=== PATIENT | female | born 1980 | race African-American/Black ===

== ENCOUNTER 2017-07-08 10:25 | Emergency (ER) | payer OTHER ==
[2017-07-08 10:32] VITALS: BP 141/86
--- NOTE | 2017-07-08 10:48 | ER Document Report ---
HPI - HPI Pain Level: 5 Notes: Patient is a 36-year-old female with no significant past medical history presents to the ED complaining of left arm pain status post fall yesterday. Patient states that she was getting out of the shower when her foot slipped and she landed on her left humerus. Patient states that she has soreness but no sharp pain. Patient states she is still able to move at the elbow and shoulder , but does have discomfort near her lateral arm. She has not noticed any bulging or bruising. She denies any smoking or IV drug use. Denies any recent illness. Denies any headache, fever, head injury, LOC, neck pain, changes in vision/speech/mentation/hearing, URI, sore throat, chest pain, palpitations, syncope, cough, shortness of breath, wheeze, dyspnea, abdominal pain, nausea/ vomiting/diarrhea, urinary retention, dysuria, hematuria, loss of control of bowel or bladder, numbness/tingling, saddle anesthesia, muscle paralysis, or rash. - ROS Systems Reviewed and Negative: Yes All other systems reviewed and negative - REPRODUCTIVE LMP: 06/10/17 Past Medical History - Social History Smoking Status: Never Smoker Family History: Reviewed & Not Pertinent Vertical Provider Document - CONSTITUTIONAL Agree With Documented VS: Yes Notes: PHYSICAL EXAMINATION: GENERAL: Well-appearing, well-nourished and in no acute distress. A&Ox4. Answers questions appropriately. HEAD: Atraumatic, normocephalic. EYES: Pupils equal round and reactive to light, extraocular movements intact, sclera anicteric, conjunctiva are normal. ENT: EAC clear b/l. TM's intact b/l without erythema, fluid, or perforation. Nares patent and without discharge. oropharynx clear without exudates. No tonsilar hypertrophy or erythema. Moist mucous membranes. No sinus tenderness. NECK: Normal range of motion, supple without lymphadenopathy LUNGS: Breath sounds clear to auscultation bilaterally and equal. No wheezes rales or rhonchi. HEART: Regular rate and rhythm without murmurs, rubs, gallops. Musculoskeletal: Left shoulder/elbow: FROM to passive/active. Strength 5+/5. N/ V intact distal. Lt Humerus: No deformity, abrasion, laceration, ecchymosis, step-offs, or erythema/warmth. + tenderness to the lateral humerus. Extremities: No cyanosis, clubbing, or edema b/l. Peripheral pulses 2+. Capillary refill less than 3 seconds. NEUROLOGICAL: MMSE intact. GCS 15. NIH 0. Cranial nerves grossly intact. Normal speech, normal gait. Normal sensory, motor exams PSYCH: Normal mood, normal affect. SKIN: Warm, Dry, normal turgor, no rashes or lesions noted. - INFECTION CONTROL TRAVEL OUTSIDE OF THE [place] IN LAST 30 DAYS: No - RESPIRATORY O2 Sat by Pulse Oximetry: 98 Course - Re-evaluation Re-evalutation: 07/08/17 11:35 Patient is an afebrile, well-hydrated, 36-year-old female who presents to the ED with a contusion to her left arm. Vitals are stable. PE is otherwise unremarkable for any neurovascular compromise, obvious tendon/ligament rupture, obvious fracture/dislocation, septic joint. X-ray was unremarkable for any acute pathology. Recommend conservative measures for symptoms. Recheck with your PCM in 3-5 days. Consider consult with orthopedics and physical therapy if needed. Return to the ED with any worsening/concerning symptoms otherwise as reviewed discharge. Patient is in agreement. - Vital Signs Vital signs: Temp Pulse Resp BP Pulse Ox 99.4 F 105 H 16 141/86 H 98 07/08/17 10:30 07/08/17 10:30 07/08/17 10:30 07/08/17 10:30 07/08/17 10:30 Discharge - Discharge Clinical Impression: Contusion of left arm Qualifiers: Encounter type: initial encounter Qualified Code(s): S40.022A - Contusion of left upper arm, initial encounter Condition: Stable Disposition: HOME, SELF-CARE Additional Instructions: Rest, Ice, Compression, Elevation Tylenol/ibuprofen as needed Light stretches daily Strength exercises as able Moist heat and massage may help F/u with your PCP in 3-5 days for a recheck Consider consult(s) with Orthopedics/physical therapy for ongoing/worsening symptoms Return to the ED with any worsening symptoms and/or development of fever, headache, chest pain, palpitations, syncope, shortness of breath, trouble breathing, abdominal pain, n/v/d, muscle weakness/paralysis, numbness/tingling, swelling, redness, or other worsening symptoms that are concerning to you. Forms: Elevated Blood Pressure Referrals: [facility] ([facility]) [Provider Group] - Follow up as needed
--- NOTE | 2017-07-08 11:34 | RADIOLOGY REPORT (SQ) ---
EXAM DESCRIPTION: HUMERUS LEFT COMPLETED DATE/TIME: 07/08/2017 11:24 am REASON FOR STUDY: left arm pain s/p injury COMPARISON: None. NUMBER OF VIEWS: Two views. TECHNIQUE: Two radiographic images were acquired of the left humerus to include elbow and shoulder i n at least one projection. LIMITATIONS: None. FINDINGS: MINERALIZATION: Normal. BONES: No acute fracture or dislocation. No worrisome bone lesions. SOFT TISSUES: No obvious swelling or foreign body. OTHER: No other significant finding. IMPRESSION: NEGATIVE STUDY OF THE LEFT HUMERUS. NO RADIOGRAPHIC EVIDENCE OF ACUTE INJURY. TECHNICAL DOCUMENTATION: JOB ID: [id number] [employer]- All Rights Reserved
== END 2017-07-08 11:47 | disposition home or self-care (01) ==
LOC: ER 10:25
DX: S40.022A Contusion of left upper arm, initial encounter (principal); W19.XXXA Unspecified fall, initial encounter
CPT/HCPCS: 99283

== ENCOUNTER → 2018-07-13 | Outpatient (CLI) | payer OTHER ==
--- NOTE | 2018-07-13 10:42 | RADIOLOGY REPORT (SQ) ---
EXAM DESCRIPTION: U/S ABDOMEN COMPLETE W/DOPPLER COMPLETED DATE/TIME: 07/13/2018 10:32 am REASON FOR STUDY: EPIGASTRIC PAIN (R10.13) R10.13 EPIGASTRIC PAIN COMPARISON: None. TECHNIQUE: Dynamic and static grayscale images acquired of the abdomen and recorded on PACS. Additio nal selected color Doppler and spectral images recorded. Note: Study does not meet criteria for complete doppler/duplex scan LIMITATIONS: None. FINDINGS: PANCREAS: No masses. Visualized pancreatic duct normal caliber. LIVER: No masses. Echotexture normal. LIVER VASCULATURE: Normal directional flow of the main portal vein and hepatic veins. GALLBLADDER: Gallstone(s). No pericholecystic fluid. No wall thickening. ULTRASOUND-DETECTED MORELOS'S SIGN: Negative. INTRAHEPATIC DUCTS AND COMMON DUCT: CBD and intrahepatic ducts normal caliber. No filling defects. INFERIOR VENA CAVA: Normal flow. AORTA: No aneurysm. RIGHT KIDNEY: Normal size. Normal echogenicity. No solid or suspicious masses. No hydronephros is. No calcifications. LEFT KIDNEY: Normal size. Normal echogenicity. No solid or suspicious masses. No hydronephrosi s. No calcifications. SPLEEN: Normal size. No solid masses. PERITONEAL AND PLEURAL SPACES: No ascites or effusions. OTHER: No other significant finding. IMPRESSION: GALLSTONES. NO OTHER SIGNIFICANT FINDINGS. TECHNICAL DOCUMENTATION: JOB ID: [id number] [employer]- All Rights Reserved Reading location - IP/workstation name: [email or web address]
== END ==
LOC: RAD 09:07
PROVIDERS: ATTEND Family Medicine
DX: K80.80 Other cholelithiasis without obstruction (principal); R10.13 Epigastric pain
CPT/HCPCS: 76700; 93976

== ENCOUNTER 2018-11-17 14:02 | Emergency (ER) | payer OTHER ==
[2018-11-17 17:25] LABS: APPEARANCE,URINE SLIGHTLY-CLOUDY; BILIRUBIN,URINE NEGATIVE (NEGATIVE); COLOR,URINE YELLOW; GLUCOSE, URINE NEGATIVE (NEGATIVE); KETONES,URINE NEGATIVE (NEGATIVE); LEUKOCYTE ESTERASE,URINE NEGATIVE (NEGATIVE); NITRITE,URINE NEGATIVE (NEGATIVE); PROTEIN,URINE NEGATIVE (NEGATIVE); URINE SPECIFIC GRAVITY 1.025
[2018-11-17 17:50] LABS: RBCS (WET MOUNT) NO RBCS SEEN; T.VAGINALIS (WET MOUNT) NO TRICHOMONAS SEEN; WBCS (WET MOUNT) RARE WBCS SEEN; YEAST (WET MOUNT) NO YEAST SEEN
[2018-11-17] MEDS ORDERED: FLUCONAZOLE 100 MG TABLET PO ONE (18:27)
--- NOTE | 2018-11-17 18:34 | ER Document Report ---
HPI - HPI Patient complains to provider of: Vaginal discharge Time Seen by Provider: 11/17/18 16:23 Pain Level: 3 Context: Patient is otherwise healthy 38-year-old female no history of diabetes presents to the emergency department for generalized vaginal discharge for the last 2 days. She also had generalized chills. She did not take her temperature so she is unsure if she is febrile. Patient is denying any abdominal pain or dysuria. States the vaginal discharge is malodorous and white and itching. Patient denies using any [id number] treatments for this vaginal discharge. Patient states she has not been sexually active in the last 2 years. States she believes her last menstrual cycle was the beginning of September. - REPRODUCTIVE Reproductive: DENIES: : Past Medical History - General Information source: Patient - Social History Smoking Status: Unknown if Ever Smoked Family History: Reviewed & Not Pertinent Renal/ Medical History: Denies: Hx Peritoneal Dialysis Vertical Provider Document - CONSTITUTIONAL Agree With Documented VS: Yes Notes: GENERAL: Alert, interacts well. No acute distress. HEAD: Normocephalic, atraumatic. EYES: Pupils equal, round, and reactive to light. Extraocular movements intact. ENT: Oral mucosa moist, tongue midline. NECK: Full range of motion. Supple. Trachea midline. LUNGS: Clear to auscultation bilaterally, no wheezes, rales, or rhonchi. No respiratory distress. HEART: Regular rate and rhythm. No murmur ABDOMEN: Soft, non-tender. Non-distended. Bowel sounds present in all 4 quadrants. No pelvic pain or suprapubic pain noted. EXTREMITIES: Moves all 4 extremities spontaneously. No edema, normal radial and dorsalis pedis pulses bilaterally. No cyanosis. BACK: no cervical, thoracic, lumbar midline tenderness. No saddle anesthesia, normal distal neurovascular exam. NEUROLOGICAL: Alert and oriented x3. Normal speech. cranial nerves II through XII grossly intact PSYCH: Normal affect, normal mood. SKIN: Warm, dry, normal turgor. No rashes or lesions noted. Genitalia/pelvic: Lineman A Class Kamaljit PCT no outward vaginal lesions noted, copious amounts of thick white malodorous discharge noted in the cul-de-sac. No cervical motion tenderness, no adnexal tenderness noted bilaterally. - INFECTION CONTROL TRAVEL OUTSIDE OF THE [place] IN LAST 30 DAYS: No Course - Re-evaluation Re-evalutation: 11/17/18 18:30 Laboratory 11/17/18 11/17/18 16:45 17:05 Urine Color YELLOW Urine Appearance SLIGHTLY-CLOUDY Urine pH 5.0 Ur Specific [place] 1.025 Urine Protein NEGATIVE Urine Glucose (UA) NEGATIVE Urine Ketones NEGATIVE Urine Blood SMALL H Urine Nitrite NEGATIVE Urine Bilirubin NEGATIVE Urine Urobilinogen 2.0 H Ur Leukocyte Esterase NEGATIVE Urine WBC (Auto) 4 Urine RBC (Auto) 3 Urine Bacteria (Auto) 1+ Squamous Epi Cells Auto 1 Urine Mucus (Auto) RARE Urine Ascorbic Acid NEGATIVE Urine HCG, Qual NEGATIVE Trichomonas (Wet Prep) NO TRICHOMONAS SEEN Vaginal WBC RARE WBCS SEEN Vaginal RBC NO RBCS SEEN Vaginal Yeast NO YEAST SEEN Patient's urine shows no signs of obvious infection, sent for culture. Patient's wet mount shows no trichomonas, no RBCs, no yeast, rare WBCs seen. I have also discussed patient's wet mount with her at bedside. Although wet mount is revealing no signs of yeast I do feel based on physical exam that this discharge could be yeast related. Lab could have had a false negative. Patient is declining prophylactic treatment for gonorrhea or chlamydia at this time. I discussed with her following up for culture results should she need to be treated. Patient states she be willing to take the yeast treatment at this time. Discussed following up with DELIVERY ASSISTANT or primary care provider for continued care. Patient voices understanding, stable for discharge. - Vital Signs Vital signs: Temp Pulse Resp BP Pulse Ox 98.9 F 85 16 150/90 H 100 11/17/18 15:26 11/17/18 15:26 11/17/18 15:26 11/17/18 15:26 11/17/18 15:26 - Laboratory Laboratory results interpreted by me: 11/17/18 16:45 Urine Blood SMALL H Urine Urobilinogen 2.0 H Discharge - Discharge Clinical Impression: Yeast vaginitis Condition: Stable Disposition: HOME, SELF-CARE Instructions: Vaginal Yeast Infection ([facility]) Additional Instructions: As we discussed you have been seen and treated in the emergency department for your vaginal discharge. At this point in time the lab is stating that you are yeast and bacterial vaginosis testing came back negative. Based on your physical exam and your symptoms I do feel as though this could be yeast in the lab could have had a false negative. I have treated you for a yeast infection in the emergency room. Your gonorrhea and Chlamydia testing are still pending. Please call [phone] for your culture results. Please also follow-up with your primary care provider or the DELIVERY ASSISTANT I provided in this packet. Please return to the emergency room for any other concerns. Referrals: GAEL JARA MD [ACTIVE STAFF] - Follow up as needed
[2018-11-17 19:21] LABS: CHLAM PCR NOT DETECTED (NOT DETECT)
[2018-11-17 20:34] VITALS: BP 151/98
== END 2018-11-17 20:34 | disposition home or self-care (01) ==
LOC: ER 14:02
DX: B37.3 Candidiasis of vulva and vagina (principal); E11.9 Type 2 diabetes mellitus without complications; R68.83 Chills (without fever)
CPT/HCPCS: 81001; 81025; 87086; 87210; 87491; 87591; 99283

== ENCOUNTER 2019-09-25 14:50 | Emergency (ER) | payer OTHER ==
[2019-09-25] MEDS ORDERED: IBUPROFEN 800 MG TABLET PO ONE (15:13)
--- NOTE | 2019-09-25 15:17 | ER Document Report ---
ED Extremity Problem, Upper - General Chief Complaint: Arm Problem Stated Complaint: RIGHT ARM PAIN Time Seen by Provider: 09/25/19 15:11 Primary Care Provider: [facility] [Provider Group] - Follow up as needed Mode of Arrival: Ambulatory Notes: 38-year-old female presents to ED for complaint of pain and injury to her right shoulder and elbow. She states she was taking out the trash on Thursday when it was extremely winded when caught the trash bag yanked her arm back and she felt a pop. There is no obvious deformities at this time. She states she had Tylenol yesterday but has not had no medications today. I have ordered her some ibuprofen and a sling and x-ray of the shoulder and elbow. We will follow-up when we get the results of the x-rays. TRAVEL OUTSIDE OF THE [place] IN LAST 30 DAYS: No - HPI Patient complains to provider of: Injury, Pain, Right, Elbow, Shoulder Onset: Other - Thursday Recent injury: Yes Where: Home, Outdoors Quality of pain: Sharp, Throbbing Severity of pain: Moderate Pain Level: 2 Context: Other - And caused a pop in her upper arm shoulder elbow Associated symptoms: None Exacerbated by: Movement, Exertion Relieved by: Rest, Positioning Similar symptoms previously: No Recently seen / treated by doctor: No - Related Data Allergies/Adverse Reactions: No Known Allergies Allergy (Verified 09/25/19 15:01) Past Medical History - General Information source: Patient - Social History Smoking Status: Never Smoker Chew tobacco use (# tins/day): No Frequency of alcohol use: None Drug Abuse: None Family History: Reviewed & Not Pertinent Patient has suicidal ideation: No Patient has homicidal ideation: No - Past Medical History Cardiac Medical History: Reports: None Pulmonary Medical History: Reports: None EENT Medical History: Reports: None Neurological Medical History: Reports: None Endocrine Medical History: Reports: None Renal/ Medical History: Reports: None Malignancy Medical History: Reports: None GI Medical History: Reports: None Musculoskeletal Medical History: Reports None Skin Medical History: Reports None Psychiatric Medical History: Reports: None Traumatic Medical History: Reports: None Infectious Medical History: Reports: None Surgical Hx: Negative Past Surgical History: Reports: None Review of Systems - Review of Systems Constitutional: No symptoms reported EENT: No symptoms reported Cardiovascular: No symptoms reported Respiratory: No symptoms reported Gastrointestinal: No symptoms reported Genitourinary: No symptoms reported Female Genitourinary: No symptoms reported Musculoskeletal: Joint pain - Right shoulder and elbow, Muscle pain, Muscle stiffness. denies: Joint swelling Skin: No symptoms reported Hematologic/Lymphatic: No symptoms reported Neurological/Psychological: No symptoms reported -: Yes All other systems reviewed and negative Physical Exam - Vital signs Vitals: Temp Pulse Resp BP Pulse Ox 99.4 F 113 H 18 149/102 H 97 09/25/19 14:55 09/25/19 14:55 09/25/19 14:55 09/25/19 14:55 09/25/19 14:55 Interpretation: Normal - General General appearance: Appears well, Alert - HEENT Head: Normocephalic, Atraumatic Eyes: Normal Pupils: PERRL - Respiratory Respiratory status: No respiratory distress Chest status: Nontender Breath sounds: Normal Chest palpation: Normal - Cardiovascular Rhythm: Regular Heart sounds: Normal auscultation Murmur: No - Abdominal Inspection: Normal Distension: No distension Bowel sounds: Normal Tenderness: Nontender Organomegaly: No organomegaly - Back Back: Normal, Nontender - Extremities General upper extremity: Normal inspection, Normal color, Normal temperature General lower extremity: Normal inspection, Nontender, Normal color, Normal ROM, Normal temperature, Normal weight bearing. No: Soco's sign Shoulder: Tender, Limited ROM - To pain. No: Abrasion, Deformity, Dislocation, Ecchymosis, Instability, Laceration - Neurological Neuro grossly intact: Yes Cognition: Normal Orientation: AAOx4 Caryn Coma Scale Eye Opening: Spontaneous [place] Coma Scale Verbal: Oriented Caryn Coma Scale Motor: Obeys Commands [place] Coma Scale Total: 15 Speech: Normal Motor strength normal: LUE, RUE, LLE, RLE Sensory: Normal - Psychological Associated symptoms: Normal affect, Normal mood - Skin Skin Temperature: Warm Skin Moisture: Dry Skin Color: Normal Course - Re-evaluation Re-evalutation: 09/25/19 16:25 Discussed x-rays with patient written report of x-rays given to patient. I did discuss exercises with patient. Patient states she would prefer to stick with ibuprofen and not get any narcotics. Informed patient that it is very important she follows up with orthopedics gave her the name and number of orthopedics. She verbalized understanding and agreement with discharge instructions and she was discharged home. - Vital Signs Vital signs: Temp Pulse Resp BP Pulse Ox 99.1 F 104 H 16 142/99 H 97 09/25/19 16:18 09/25/19 16:18 09/25/19 16:18 09/25/19 16:18 09/25/19 16:18 - Diagnostic Test Radiology reviewed: Image reviewed, Reports reviewed Procedures - Immobilization Right Shoulder Time completed: 15:20 Pre-Proc Neuro Vasc Exam: Normal Immobilizer type: Sling Performed by: PCT Post-Proc Neuro Vasc Exam: Normal Alignment checked and good: Yes Discharge - Discharge Clinical Impression: Right shoulder pain Qualifiers: Chronicity: acute Qualified Code(s): M25.511 - Pain in right shoulder Condition: Stable Disposition: HOME, SELF-CARE Additional Instructions: Shoulder Injury You have injured your shoulder. This usually results from stretching or tearing of the tendons during trauma. Time and protection are required in order to heal properly. Many injuries are quite disabling, and should be taken seriously. Initial treatment includes cold packs and a sling to rest the shoulder. The physician has assessed the seriousness of your injury, and has outlined a treatment plan. Understand that this treatment may change, depending on how you progress. If a re-examination was recommended, it is important that you follow up as instructed. Some shoulder injuries (such as partial tear of the rotator cuff) are only suspected after you've failed to improve. Call us if there's severe pain, numbness, or loss of function. Ibuprofen Ibuprofen is an excellent, safe drug for pain control. In addition, it has potent antiinflammatory effects which are beneficial, especially in the treatment of injuries, arthritis, or tendonitis. It's best to take ibuprofen with food. Persons with ulcer disease or allergy to aspirin should notify their physician of this before taking ibuprofen. Take the medication exactly as prescribed. Don't take additional doses unless instructed to do so by your doctor. If you develop wheezing, shortness of breath, hives, faintness, stomach pain, vomiting, or dark black stools, return for re-evaluation at once. Ice Packs Apply ice packs frequently against the painful area. Many different schedules are recommended, such as "20 minutes on, 20 minutes off" or "one hour ice, two hours rest." If you need to work, you may need to go longer between ice treatments. You should plan to have the area ice packed AT LEAST one fourth of the time. The ice should be applied over the wrap, tape, or splint, or over a layer of cloth -- not directly against the skin. Some ice bags have a built-in cloth and can be put directly on the skin. Exercise Program for the Shoulder Since the shoulder moves in so many directions, the joint attachment is weak. Muscles provide most of the stability to the shoulder. You must exercise your shoulder to prevent painful instability or stiffening. PASSIVE - These may be begun within a few days of the injury. While standing, lean forward, allowing the arm to hang down towards the floor. Move the arm in small circles while slowly twisting your chest towards and away from the hanging arm. Do this for one minute. ACTIVE - These may be performed when the doctor gives permission. Begin with the arms at the sides. Raise the arms forward (shoulder's width apart) until they reach shoulder level. Then slowly swing both arms back until they are aiming straight out away from each other. Then bring them forward again, and finally, lower them to your sides. Repeat 20 to 30 times. As you improve, put weights in your hands for the exercise. Start with one pound, and work up to 10 pounds. Never use more than is comfortable. Athletes may work up to 30 pounds. Sling as Treatment A sling has been applied to protect the injury. This is adequate immobilization for this type of injury -- no cast or brace is required. Keep the sling on at all times until instructed to remove it by the doctor. Even though no cast or splint is needed, you must use the sling. If you use the arm too soon, it may not heal properly! If necessary, the sling can be adjusted for comfort. Return if you are encountering problems with the sling. FOLLOW-UP CARE: If you have been referred to a physician for follow-up care, call the physicians office for an appointment as you were instructed or within the next two days. If you experience worsening or a significant change in your symptoms, notify the physician immediately or return to the Emergency Department at any time for re-evaluation. Forms: Elevated Blood Pressure, Return to Work Referrals: [facility] ([facility] [Provider Group] - Follow up as needed
--- NOTE | 2019-09-25 15:54 | RADIOLOGY REPORT (SQ) ---
EXAM DESCRIPTION: ELBOW RIGHT OVER 2 VIEWS; SHOULDER RIGHT 2 OR MORE VIEWS; HUMERUS RIGHT IMAGES COMPLETED DATE/TIME: 09/25/2019 2:39 pm REASON FOR STUDY: pain and injury; PAIN AND INJURY COMPARISON: None. NUMBER OF VIEWS: Four views. TECHNIQUE: AP, lateral, and both oblique radiographic images acquired of the right elbow. AP internet salesperson al and external rotation and scapular Y-views of the right shoulder. AP and lateral atkinson of the rig ht humerus. LIMITATIONS: None. FINDINGS: MINERALIZATION: Normal. BONES: No acute fracture or dislocation. No worrisome bone lesions. JOINT: There is normal glenohumeral joint space alignment. Acromioclavicular joint is normal. The e lbow joint has normal alignment. No elbow joint effusion. SOFT TISSUES: No soft tissue swelling. No foreign body. OTHER: No other significant finding. IMPRESSION: No radiographic abnormality of the right shoulder, humerus or elbow. TECHNICAL DOCUMENTATION: JOB ID: [id number] 2010 [employer]- All Rights Reserved Reading location - IP/workstation name: [email or web address]
--- NOTE | 2019-09-25 15:54 | RADIOLOGY REPORT (SQ) ---
EXAM DESCRIPTION: ELBOW RIGHT OVER 2 VIEWS; SHOULDER RIGHT 2 OR MORE VIEWS; HUMERUS RIGHT IMAGES COMPLETED DATE/TIME: 09/25/2019 2:39 pm REASON FOR STUDY: pain and injury; PAIN AND INJURY COMPARISON: None. NUMBER OF VIEWS: Four views. TECHNIQUE: AP, lateral, and both oblique radiographic images acquired of the right elbow. AP recruitment intern al and external rotation and scapular Y-views of the right shoulder. AP and lateral atkinson of the rig ht humerus. LIMITATIONS: None. FINDINGS: MINERALIZATION: Normal. BONES: No acute fracture or dislocation. No worrisome bone lesions. JOINT: There is normal glenohumeral joint space alignment. Acromioclavicular joint is normal. The e lbow joint has normal alignment. No elbow joint effusion. SOFT TISSUES: No soft tissue swelling. No foreign body. OTHER: No other significant finding. IMPRESSION: No radiographic abnormality of the right shoulder, humerus or elbow. TECHNICAL DOCUMENTATION: JOB ID: [id number] 2010 [employer]- All Rights Reserved Reading location - IP/workstation name: [email or web address]
--- NOTE | 2019-09-25 15:54 | RADIOLOGY REPORT (SQ) ---
EXAM DESCRIPTION: ELBOW RIGHT OVER 2 VIEWS; SHOULDER RIGHT 2 OR MORE VIEWS; HUMERUS RIGHT IMAGES COMPLETED DATE/TIME: 09/25/2019 2:39 pm REASON FOR STUDY: pain and injury; PAIN AND INJURY COMPARISON: None. NUMBER OF VIEWS: Four views. TECHNIQUE: AP, lateral, and both oblique radiographic images acquired of the right elbow. 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 AP and lateral atkinson of the rig ht humerus. LIMITATIONS: None. FINDINGS: MINERALIZATION: Normal. BONES: No acute fracture or dislocation. No worrisome bone lesions. JOINT: There is normal glenohumeral joint space alignment. Acromioclavicular joint is normal. The e lbow joint has normal alignment. No elbow joint effusion. SOFT TISSUES: No soft tissue swelling. No foreign body. OTHER: No other significant finding. IMPRESSION: No radiographic abnormality of the right shoulder, humerus or elbow. TECHNICAL DOCUMENTATION: JOB ID: [id number] 2010 [employer]- All Rights Reserved Reading location - IP/workstation name: [email or web address]
[2019-09-25 16:20] VITALS: BP 142/99
== END 2019-09-25 16:26 | disposition home or self-care (01) ==
LOC: ER 14:50
DX: M25.511 Pain in right shoulder (principal); M25.521 Pain in right elbow; X50.0XXA Overexertion from strenuous movement or load, initial encounter; Y93.89 Activity, other specified; Y92.009 Unspecified place in unspecified non-institutional (private) residence as the place of occurrence of the external cause; M79.10 Myalgia, unspecified site
CPT/HCPCS: 99283